=== PATIENT | male | born 1950 | race Caucasian/White ===

== ENCOUNTER → 2017-01-19 | Outpatient (REF) ==
[~2017-01-19] MED LIST: 00186-0370-20 IH; ARTIFICIAL SALIVA; ASPIRIN 32325 MG/TAB PO; ASPIRIN 81M81 MG/TA2 PO; ASPIRIN E.C. 8181 MG PO; ATROVENT INHALE14 GM IH; BETAPACE 120MG120 MG PO; CARDIZEM CD 24240 MG PO; CEPHALEXIN500 M1 PO; CLARITIN 1010 MG/TAB PO; COMBIRESP IH; ELIQUIS 5MG PO; FLONASEALLERGY NS; GERI-TUSSI100 MG/5 M PO; GOOD SENSE LAC3000 U PO; IBU800 M1 PO; K-TAB20 PO; LASIX 40MG TABL40 MG PO; METROCREAM CREA45 GM TP; MINIPRESS2 MG; MOI STIR MM; NEURONTIN600 MG/TAB PO; NICODERM C14 MG/PATC TOP; NICORETTE GUM2 MG PO; NORVASC 10MG10 MG PO; PRINIVIL40 MG PO; PROAIR HFA0.09 MG/AC IH; PROTONIX 40MG T40 MG PO; RT ADVAIR 528 DISKUS IH; SINGULAIR 110 MG/TAB PO; TEMOVATE0.05% TP; TYLENOL 325MG325 MG PO
== END ==
LOC: ZLAB.WCH 11:23
DX: Z02.89 Encounter for other administrative examinations (principal)

== ENCOUNTER 2017-02-21 11:53 | Inpatient (IN) | payer MEDICARE, OTHER ==
[~2017-02-21] VITALS: Ht 162.7 cm; Wt 99.0 kg
[~2017-02-21 11:53] MED LIST changes: -ASPIRIN 81M81 MG/TA2 PO; -BETAPACE 120MG120 MG PO; -CARDIZEM CD 24240 MG PO; -COMBIRESP IH; -ELIQUIS 5MG PO; -FLONASEALLERGY NS; -IBU800 M1 PO; -K-TAB20 PO; -MOI STIR MM; -RT ADVAIR 528 DISKUS IH; -SINGULAIR 110 MG/TAB PO
[2017-03-04 08:24] VITALS: BP 160/89; PULSE 69; TEMP 98.3
[2017-03-04] MEDS ORDERED: COMBIRESP IH (09:01)
[2017-03-04] MEDS ORDERED: ELIQUIS 5MG PO (09:02)
[2017-03-04] MEDS ORDERED: MOI STIR MM (09:03)
[2017-03-04] MEDS ORDERED: ASPIRIN 81M81 MG/TA2 PO (09:03)
[2017-03-04] MEDS ORDERED: CARDIZEM CD 24240 MG PO (09:05)
[2017-03-04] MEDS ORDERED: FLONASEALLERGY NS (09:05)
[2017-03-04] MEDS ORDERED: RT ADVAIR 528 DISKUS IH (09:07)
[2017-03-04] MEDS ORDERED: ATROVENT INHALE14 GM IH (09:08)
[2017-03-04] MEDS ORDERED: IBU800 M1 PO (09:08)
[2017-03-04] MEDS ORDERED: SINGULAIR 110 MG/TAB PO (09:10)
[2017-03-04 11:58] LABS: BASO % 0.6 % (0.0-2.0); EOS % 0.6 % (0-4.0); GRAN # 4.5 (1.4-6.5); GRAN % 62.6 % (42.2-75.2); HEMATOCRIT 44.4 % (42.0-52.0); HEMOGLOBIN 15.2 g/dl (13.5-18.0); LYMPH # 1.9 (1.2-3.4); LYMPH % 27.1 % (20.0-51.0); MEAN CELL VOLUME 104 fl (80.0-100.0); MEAN CORPUSCULAR HEMOGLOBIN 36 pg (27.0-31.0); MEAN CORPUSCULAR HGB CONC 34 g/dl (33.0-37.0); MEAN PLATELET VOLUME 9.7 fl (7.4-10.4); MONO # 0.6 (0.1-0.6); MONO % 8.7 % (1.7-9.3); PLATELET COUNT 218 K/mm3 (130-400); RED BLOOD COUNT 4.26 M/mm3 (4.20-5.60); REDCELL DISTRIBUTION WIDTH-CV 15.4 % (11.5-14.5); WHITE BLOOD COUNT 7.1 K/mm3 (4.8-10.8)
[2017-03-04 12:06] LABS: INR 1.3 (0.8-3.0); PROTHROMBIN TIME 14.5 SECONDS (9.7-12.8)
[2017-03-04 12:11] LABS: ADJUSTED CALCIUM 9.1 mg/dL (8.4-10.2); ALBUMIN 3.9 gm/dL (3.5-5.0); BILIRUBIN,TOTAL 1.6 mg/dL (0.0-1.0); CREATININE, serum 0.52 mg/dL (0.66-1.25); MAGNESIUM 1.4 mg/dL (1.6-2.3); POTASSIUM 3.5 mmol/L (3.4-5.0); TOTAL PROTEIN 6.9 gm/dL (6.4-8.2)
[2017-03-04 12:41] VITALS: BP 176/84; PULSE 64; TEMP 97.6
[2017-03-04 16:40] VITALS: BP 142/78; PULSE 68; TEMP 98
[2017-03-04 19:52] VITALS: BP 157/84; PULSE 70; TEMP 97.6
[2017-03-04 23:55] VITALS: BP 149/82; PULSE 67; TEMP 97.6
[2017-03-05] VITALS (9 sets, daily range): BP systolic 99–144; BP diastolic 62–81; PULSE 60–76; TEMP 97.1–97.9
[2017-03-06] VITALS (8 sets, daily range): BP systolic 104–128; BP diastolic 66–87; PULSE 65–88; TEMP 97.6–97.9
[2017-03-06 08:14] LABS: INR 1.5 (0.8-3.0); PROTHROMBIN TIME 17.2 SECONDS (9.7-12.8)
[2017-03-06] MEDS ORDERED: BETAPACE 120MG120 MG PO (11:14)
[2017-03-06] MEDS ORDERED: K-TAB20 PO (11:18)
== END 2017-03-06 12:00 | disposition home or self-care (01) | DRG 310 ==
LOC: MEDICAL 03-04 08:08
PROVIDERS: Internal Medicine Cardiovascular Disease
PROC: 5A2204Z Restoration of Cardiac Rhythm, Single (ICD-10-PCS; principal; 2017-03-06)
DX: I48.0 Paroxysmal atrial fibrillation (principal); E87.6 Hypokalemia; J44.9 Chronic obstructive pulmonary disease, unspecified; I10 Essential (primary) hypertension; I44.2 Atrioventricular block, complete; G47.33 Obstructive sleep apnea (adult) (pediatric); I25.10 Atherosclerotic heart disease of native coronary artery without angina pectoris; Z95.0 Presence of cardiac pacemaker
CPT/HCPCS: A9502; J2785; J7030

== ENCOUNTER 2017-03-14 13:03 | Day surgery (SDC) | payer MEDICARE, OTHER ==
[~2017-03-14] VITALS: Ht 162.6 cm; Wt 102.2 kg
[~2017-03-14 13:03] MED LIST changes: +ASPIRIN 81M81 MG/TA2 PO; +BETAPACE 120MG120 MG PO; +CARDIZEM CD 24240 MG PO; +COMBIRESP IH; +ELIQUIS 5MG PO; +FLONASEALLERGY NS; +IBU800 M1 PO; +K-TAB20 PO; +MOI STIR MM; +RT ADVAIR 528 DISKUS IH; +SINGULAIR 110 MG/TAB PO
== END 2017-03-14 15:07 | disposition home or self-care (01) ==
LOC: EUO 13:03 → COL.CAR 13:45 → EUO 15:07
DX: I48.91 Unspecified atrial fibrillation (principal); Z79.899 Other long term (current) drug therapy; Z79.82 Long term (current) use of aspirin

== ENCOUNTER → 2017-07-29 | Outpatient (REF) | LOC: ZLAB.WCH 10:18 | DX: Z01.89 Encounter for other specified special examinations (principal) ==